=== PATIENT | female | born 1980 | race Caucasian/White ===

== ENCOUNTER → 2017-07-29 09:38 | Outpatient (CLI) | payer OTHER ==
[~2017-07-29 09:38] MED LIST: TESSALON200 MG PO
== END | disposition home or self-care (01) ==
LOC: LAB 09:38
DX: I11.9 Hypertensive heart disease without heart failure (principal); E11.9 Type 2 diabetes mellitus without complications; E78.2 Mixed hyperlipidemia; E03.8 Other specified hypothyroidism; E56.8 Deficiency of other vitamins; N39.0 Urinary tract infection, site not specified; D50-D89 Diseases of the blood and blood-forming organs and certain disorders involving the immune mechanism; R77.1 Abnormality of globulin

== ENCOUNTER → 2017-11-18 16:23 | Outpatient (CLI) | payer OTHER | END | disposition home or self-care (01) | LOC: RAD 16:23 | DX: M05.79 Rheumatoid arthritis with rheumatoid factor of multiple sites without organ or systems involvement (principal); M25.542 Pain in joints of left hand; M25.541 Pain in joints of right hand ==

== ENCOUNTER 2017-12-03 08:01 | Outpatient (CLI) | payer OTHER | END 2017-12-03 08:10 | disposition home or self-care (01) | LOC: NUCLEAR 08:01 | DX: M05.79 Rheumatoid arthritis with rheumatoid factor of multiple sites without organ or systems involvement (principal) | CPT/HCPCS: 78315; A9503 ==

== ENCOUNTER 2018-01-07 08:48 | Outpatient (CLI) | payer OTHER | END 2018-01-07 09:38 | disposition home or self-care (01) | LOC: RAD 08:48 | DX: M54.2 Cervicalgia (principal); M50.020 Cervical disc disorder with myelopathy, mid-cervical region, unspecified level; R05 Cough | CPT/HCPCS: 72141 ==

== ENCOUNTER 2018-01-13 09:39 | Outpatient (CLI) | payer OTHER | END 2018-01-13 09:41 | disposition home or self-care (01) | LOC: SONOGRAMA 09:39 → MAMO-SONO 09:45 | DX: R74.0 Nonspecific elevation of levels of transaminase and lactic acid dehydrogenase [LDH] (principal) ==

== ENCOUNTER → 2021-02-20 | Outpatient (CLI) | payer OTHER | END | disposition home or self-care (01) | LOC: MAMO-SONO 15:17 | PROVIDERS: ATTEND Obstetrics & Gynecology | DX: N60.11 Diffuse cystic mastopathy of right breast (principal); N60.12 Diffuse cystic mastopathy of left breast; Z12.31 Encounter for screening mammogram for malignant neoplasm of breast ==